=== PATIENT | male | born 1985 | race American Indian/Alaskan Native ===

== ENCOUNTER 2016-11-26 11:42 | Observation (INO) | payer OTHER, SELFPAY ==
[2016-11-26] MEDS ORDERED: Sodium Chloride 0.9% 1,000 ML IV STA (12:12)
--- NOTE | 2016-11-26 12:23 | ED PDOC ---
Arrival/HPI - General Historian: Patient EM Caveat: Acuity of Condition - History of Present Illness Time/Duration: Prior to Arrival Symptom Onset: Sudden Symptom Course: Unchanged Quality: Aching Severity Level: 10 Activities at Onset: Sleeping Context: Home <Harry Denny - Last Filed: 11/26/16 17:10> <HazelKylie - Last Filed: 11/26/16 17:29> - General Chief Complaint: Abdominal Pain Time Seen by Provider: 11/26/16 11:53 - History of Present Illness Narrative History of Present Illness (Text): Patient is a 31 year old male with a past medical history of APKD who presents to the [facility] ED 11/25/16 with complaints of nausea, vomiting, and diarrhea. Patient states he woke up at 7 a.m. with an episode of diarrhea. He said vomiting ensued an hour later and has been throwing up since. Patient states nausea and vomiting is exacerbated when he leans to his left side. Describes vomitus as clear and absent of blood since he has not eaten in a while. Patient states this has occurred a couple of times in the past. He admits to fevers, chills. Denies headache, shortness of breath, chest pain, weakness, dysuria, hematuria. Patient states he is currently taking tylenol 3 for back pain secondary to APKD. Patient was recommended by his PMD to make an appt with nephrology to monitor progression of APKD; patient has not done so as of yet. PMD: Dr. Lezama PMH: APKD FMHx: Mother- Brain aneurysm, Father- Gastroesophageal cancer 11/26/16 12:19 (Harry Denny) Past Medical History - Provider Review Nursing Documentation Reviewed: Yes - Cardiac Hx Hypertension: Yes - Pulmonary Hx Respiratory Disorders: No - Neurological Hx Neurological Disorder: No - HEENT Hx HEENT Disorder: No - Renal Hx Renal Disorder: No - Endocrine/Metabolic Hx Endocrine Disorders: No - Hematological/Oncological Hx Blood Disorders: No - Integumentary Hx Dermatological Disorder: No - Musculoskeletal/Rheumatological Hx Musculoskeletal Disorders: No - Gastrointestinal Hx Gastritis: Yes - Genitourinary/Gynecological Other/Comment: POLYCYSTIC KIDNEY DISEASE - Psychiatric Hx Psychophysiologic Disorder: No Hx Depression: No Hx Substance Use: No - Suicidal Assessment Feels Threatened In Home Enviroment: No <Harry Denny - Last Filed: 11/26/16 17:10> Family/Social History - Physician Review Nursing Documentation Reviewed: Yes Family/Social History: Other Smoking Status: Never Smoked Hx Alcohol Use: No Hx Substance Use: No Hx Substance Use Treatment: No <Harry Denny - Last Filed: 11/26/16 17:10> <Kylie Oliva - Last Filed: 11/26/16 17:29> Narrative Family History (Free Text): non-contributory 11/26/16 12:24 (Harry Denny) Allergies/Home Meds <Harry Denny - Last Filed: 11/26/16 17:10> <Kylie Oliva - Last Filed: 11/26/16 17:29> Allergies/Adverse Reactions: Allergies No Known Allergies Allergy (Verified 11/26/16 12:03) Home Medications: Home Meds Medication Instructions Recorded Confirmed Lisinopril 80 mg PO DAILY 02/05/12 11/26/16 Review of Systems - Physician Review All systems were reviewed & negative as marked: Yes - Review of Systems Systems not reviewed;Unavailable: Acuity of Condition Constitutional: Fevers Eyes: Normal ENT: Normal Respiratory: absent: SOB, Cough, Sputum Cardiovascular: absent: Chest Pain, Palpitations Gastrointestinal: Diarrhea, Nausea, Vomiting Genitourinary Male: absent: Dysuria, Hematuria Skin: absent: Rash, Pruritis Neurological: absent: Headache, Dizziness, Focal Weakness <Harry Denny - Last Filed: 11/26/16 17:10> Physical Exam Vital Signs Reviewed: Yes Temperature: Afebrile Blood Pressure: Normal Pulse: Regular Respiratory Rate: Normal Appearance: Positive for: Uncomfortable Pain Distress: None Mental Status: Positive for: Alert and Oriented X 3 - Systems Exam Head: Present: Atraumatic, Normocephalic Extroacular Muscles: Present: EOMI Mouth: Present: Moist Mucous Membranes Respiratory/Chest: Present: Clear to Auscultation, Good Air Exchange, Respiratory Distress Cardiovascular: Present: Regular Rate and Rhythm, Normal S1, S2 Abdomen: No: Tenderness, Distention, Rebound, Guarding Upper Extremity: Present: Normal Inspection Lower Extremity: Present: Normal Inspection Neurological: Present: CN II-XII Intact Skin: Present: Warm, Normal Color Psychiatric: Present: Alert, Oriented x 3 <Harry Denny - Last Filed: 11/26/16 17:10> Medical Decision Making Re-evaluation Time: 18:15 (Patient states abdominal pain waxes and wanes, gave Reglan 10 mg instead of morphine. Will keep patient overnight for observation.) - Lab Interpretations I have reviewed the lab results: Yes Interpretation: All labs normal - RAD Interpretation Lehr Attendant: Radiologist <Harry Denny - Last Filed: 11/26/16 17:10> <Kylie Oliva - Last Filed: 11/26/16 17:29> ED Course and Treatment: Assessment 31 year old male with complaints of nausea vomiting and diarrhea Plan - CT abdomen/pelvis - Zofran, Pepcid - CBC, CMP - IVF - UA 11/26/16 12:26 11/26/16 12:58 (Harry Denny) 11/26/16 13:04 Jimmy Medina is a 31 year old male who presents to the emergency department with complaints of nausea and vomiting. In agreement with resident note. Patient was seen and evaluated with resident, came up with plan and treatment together. 11/26/16 15:44 Patient has been continuing to vomit despite pepcid, zofran x 2, and IVF - has failed antiemetic - will give additional antiemetic and place on med/surg. 11/26/16 17:[address] Jose David Cruz. (Kylie Oliva) - Lab Interpretations Lab Results: 11/26/16 12:40 11/26/16 12:40 Lab Results 11/26/16 13:38: Alcohol, Quantitative < 10 11/26/16 13:20: Urine Opiates Screen Negative, Urine Methadone Screen Negative, Ur Barbiturates Screen Negative, Ur Phencyclidine Scrn Negative, Ur Amphetamines Screen Negative, U Benzodiazepines Scrn Negative, U Oth Cocaine Metabols Negative, U Cannabinoids Screen Positive H 11/26/16 13:20: Urine Color Yellow, Urine Appearance Clear, Urine pH 6.5, Ur Specific Elizabeth 1.015, Urine Protein 30 H, Urine Glucose (UA) Negative, Urine Ketones 40 H, Urine Blood Moderate H, Urine Nitrate Negative, Urine Bilirubin Negative, Urine Urobilinogen 0.2, Ur Leukocyte Esterase Negative, Urine RBC 5 - 10, Urine WBC 1 - 3, Ur Epithelial Cells 0 - 2, Urine Bacteria Few 11/26/16 12:40: Sodium 144, Potassium 4.1, Chloride 106, Carbon Dioxide 22, Anion Gap 20, BUN 23 H, Creatinine 1.3, Est GFR ( Amer) > 60, Est GFR ( Non-Af Amer) > 60, Random Glucose 146 H, Calcium 10.1, Total Bilirubin 1.6 H, AST 36, ALT 20, Alkaline Phosphatase 84, Total Protein 9.0 H, Albumin 4.8, Globulin 4.2, Albumin/Globulin Ratio 1.1, Amylase 71, Lipase 66 11/26/16 12:40: WBC 9.5, RBC 4.96, Hgb 14.8, Hct 42.6, MCV 85.9, MCH 29.8, MCHC 34.7, RDW 12.4, Plt Count 260, MPV 10.2, Gran % 88.7 H, Lymph % (Auto) 6.0 L, [place] % (Auto) 5.0, Eos % (Auto) 0.1 L, Baso % (Auto) 0.2, Gran # 8.42 H, Lymph # 0.6 L, [place] # 0.5, Eos # 0.0, Baso # 0.02 - RAD Interpretation Radiology Orders: 11/26/16 12:53 ABD & PELVIS W/O PO OR IV CONT [CT] Stat - Medication Orders Current Medication Orders: Sodium Chloride (Sodium Chloride 0.9%) 1,000 mls @ 125 mls/hr IV .Q8H CHANDANA Ondansetron HCl (Zofran Inj) 4 mg IVP Q4H PRN PRN Reason: Nausea/Vomiting Pantoprazole Sodium (Protonix Inj) 40 mg IVP Q12 CHANDANA Discontinued Medications Famotidine (Pepcid) 20 mg IVP STAT STA Stop: 11/26/16 12:13 Last Admin: 11/26/16 12:46 Dose: 20 mg Famotidine (Pepcid) Confirm Administered Dose 20 mg .ROUTE .ST-MED ONE Stop: 11/26/16 12:17 Last Admin: 11/26/16 12:49 Dose: 20 mg Sodium Chloride (Sodium Chloride 0.9%) 1,000 mls @ 999 mls/hr IV .Q1H1M STA Stop: 11/26/16 13:12 Last Admin: 11/26/16 12:46 Dose: 999 mls/hr Sodium Chloride (Sodium Chloride 0.9%) 1,000 mls @ 100 mls/hr IV .Q10H CHANDANA Metoclopramide HCl (Reglan) 10 mg IVP STAT STA Stop: 11/26/16 15:39 Last Admin: 11/26/16 16:16 Dose: 10 mg Ondansetron HCl (Zofran Inj) 4 mg IVP STAT STA Stop: 11/26/16 12:13 Last Admin: 11/26/16 12:46 Dose: 4 mg Ondansetron HCl (Zofran Inj) Confirm Administered Dose 4 mg .ROUTE .STK-MED ONE Stop: 11/26/16 12:17 Last Admin: 11/26/16 16:19 Dose: Ondansetron HCl (Zofran Inj) 4 mg IVP STAT STA Stop: 11/26/16 13:24 Last Admin: 11/26/16 13:30 Dose: 4 mg - PA / LOBSTERMAN / Resident Statement / has reviewed & agrees with the documentation as recorded. / has examined the patient and agrees with the treatment plan. <Kylie Oliva - Last Filed: 11/26/16 17:29> Disposition/Present on Arrival - Present on Arrival Any Indicators Present on Arrival: No History of DVT/PE: No History of Uncontrolled Diabetes: No Urinary Catheter: No History of Decub. Ulcer: No History Surgical Site Infection Following: None - Disposition Have Diagnosis and Disposition been Completed?: Yes Disposition Time: 19:00 <Harry Denny - Last Filed: 11/26/16 17:10> <Kylie Oliva - Last Filed: 11/26/16 17:29> - Disposition Diagnosis: Polycystic kidney disease, Abdominal pain Disposition: HOSPITALIZED Patient Problems: Current Active Problems Problem Status Onset Abdominal pain Acute Polycystic kidney disease Acute Condition: GUARDED
[2016-11-26 13:28] LABS: BASO # 0.02 K/mm3 (0.0-2.0); BASO % 0.2 % (0.0-3.0); EOS % 0.1 % (1.5-5.0); GRAN # 8.42 (1.4-6.5); GRAN % 88.7 % (50.0-68.0); HEMATOCRIT 42.6 % (42.0-52.0); LYMPH # 0.6 (1.2-3.4); MEAN CELL VOLUME 85.9 fl (80.0-105.0); MEAN CORPUSCULAR HEMOGLOBIN 29.8 pg (25.0-35.0); MEAN CORPUSCULAR HGB CONC 34.7 g/dl (31.0-37.0); MEAN PLATELET VOLUME 10.2 fl (7.0-11.0); MONO # 0.5 (0.1-0.6); RED CELL DISTRIBUTION WIDTH 12.4 % (11.5-14.5); WHITE BLOOD COUNT 9.5 10^3/ul (4.5-11.0)
[2016-11-26 13:34] LABS: ALB/GLOB RATIO 1.1 (1.1-1.8); ALKALINE PHOSPHATASE 84 U/L (38-126); ALT/SGPT 20 U/L (7-56); AMYLASE 71 U/L (35-125); AST/SGOT 36 U/L (17-59); BILIRUBIN,TOTAL 1.6 mg/dL (0.2-1.3); BLOOD UREA NITROGEN 23 mg/dL (7-21); CALCIUM 10.1 mg/dL (8.4-10.5); CARBON DIOXIDE 22 mmol/L (21-33); CHLORIDE 106 mmol/L (98-107); GFR AFRICAN-AMERICAN > 60; GLUCOSE,RANDOM 146 mg/dL (70-110); LIPASE 66 U/L (23-300); POTASSIUM 4.1 mmol/L (3.6-5.0); SODIUM 144 mmol/L (132-148)
[2016-11-26 13:53] LABS: PH,URINE 6.5 (4.7-8.0); URINE BILIRUBIN NEGATIVE (NEGATIVE); URINE BLOOD MODERATE (NEGATIVE); URINE GLUCOSE (UA) NEGATIVE (NEGATIVE); URINE KETONE 40 mg/dL (NEGATIVE); URINE LEUKOCYTE ESTERASE NEGATIVE Leu/uL (NEGATIVE); URINE PROTEIN 30 mg/dL (<30 mg/dL); URINE UROBILINOGEN 0.2 E.U./dL (<1 E.U./dL)
[2016-11-26 13:59] LABS: URINE APPEARANCE CLEAR (CLEAR); URINE COLOR YELLOW (YELLOW)
[2016-11-26 14:03] LABS: URINE BACTERIA FEW (NEG); URINE EPITHELIAL CELLS 0 - 2 /hpf (0-5)
--- NOTE | 2016-11-26 15:04 | CT ---
PROCEDURE: CT abdomen and pelvis 11/26/2016 HISTORY: Diffuse abdominal pain COMPARISON: No prior TECHNIQUE: Contiguous axial images of the abdomen and pelvis. Oral contrast was administered. No IV contrast given. Coronal and Sagittal reformats generated. Radiation dose: Total exam DLP = 448.19 mGy-cm. This CT exam was performed using one or more of the following dose reduction techniques: Automated exposure control, adjustment of the mA and/or kV according to patient size, and/or use of iterative reconstruction technique. FINDINGS: LOWER THORAX: Lung bases are clear without infiltrate effusion or basilar pneumothorax. Tiny hiatal hernia. Heart size is borderline/mildly enlarged. No significant pericardial effusion. LIVER: Multiple varying sized rounded low-attenuation foci scattered throughout the entire liver most likely representing hepatic cysts. The largest of these lesions located in the anterior aspect of the left lobe measuring approximately 2.7 x 1.8 cm. GALLBLADDER AND BILE DUCTS: The gallbladder is physiologically distended. No evidence of intraluminal gallbladder calculi. PANCREAS: The pancreas appears grossly unremarkable without mass collection or calcification. SPLEEN: Spleen appears unremarkable as well without mass collection or calcification. ADRENALS: The the adrenal glands are not well delineated on due to the numerous bilateral renal cysts however no definitive adrenal mass seen within limitation of this exam. . KIDNEYS AND URETERS: Multiple bilateral renal cysts with some of the markedly enlarged kidneys consistent with polycystic kidney disease. Note that there are scattered areas of a hyperdense foci scattered throughout the kidneys that could represent focal areas of renal parenchyma however hemorrhagic cystic changes not excluded. There also a few scattered bilateral calculi as well. BLADDER: The urinary bladder appears incompletely distended which may account for slight thick-walled appearance. Muscular hypertrophy may contribute. No evidence of intraluminal urinary bladder calculi. REPRODUCTIVE: Prostate gland contains a few scattered calcifications though otherwise appears unremarkable. Seminal vesicles appear normal. APPENDIX: What could represent a partially debris filled appendix seen on axial image number [id number]. No evidence to suggest acute appendicitis BOWEL: Evaluation the bowel is limited due to the lack of oral contrast material. Stomach appears under distended which presumably accounts for slight thick-walled appearance. There is compression of the mesentery and multiple loops of small bowel due to enlarged cystic kidneys. There is also compression of portions of the large bowel as well. Elliptical shaped fluid collection within the pelvis between the bladder and rectum and seminal vesicles probably represent fluid within a loop of small bowel a discrete fluid collection have however cannot be completely excluded. Abscess would be unlikely as per clinical history. PERITONEUM: Unremarkable. No fluid collection. No definitive free intraperitoneal air LYMPH NODES: Unremarkable. No enlarged lymph nodes. VASCULATURE: Unremarkable. No aortic aneurysm. BONES: Mild multilevel degenerative spondylosis of the lower thoracic and lumbar Osseous structures appear intact. OTHER FINDINGS: None. IMPRESSION: Findings consistent with polycystic kidney disease as described above. There are also scattered areas of increased attenuation throughout the cysts that could represent residual foci of renal parenchyma however some hemorrhagic degradation not excluded. There also appear to be a few scattered calcifications. . Multiple hepatic cysts. There is a elliptical shaped fluid collection within pelvis anterior to the rectum and dorsal to the bladder that probably represents a loop of fluid-filled small bowel. Clinic correlation recommended. Abscess collection would be on likely in the absence of pertinent clinical history. These findings discussed with Dr. Oliva at approximately 2:55 p.m. with written down and read back verification.
[2016-11-26] MEDS ORDERED: Sodium Chloride 0.9% 1,000 ML IV SCH ×2 (17:15→17:17)
--- NOTE | 2016-11-26 17:24 | CP.PCM.HP ---
<DERICK LEBLANC - Last Filed: 11/26/16 18:25> History of Present Illness - History of Present Illness History of Present Illness: Mr. Medina is a 31 yo AAM with a past medical history of APKD, HTN and regular marijuana use who presents to the [facility] ED 11/26/16 with complaints of nausea, vomiting, and diarrhea that started this morning when he woke up. Pt states that he has had 6 episodes of nonbloody watery diarrhea and vomiting around the same time. Pt denies having eaten anything differently last night and states that he usually smokes 1gm of marijuana every night along with a geeta bar, and states that last night was no different. denies any association w/ marijuana use (if it makes things better or worse). states that he was in another hospital in [place] for similar complaints last , and that he has had a few similar episodes before but was never admitted to a hospital; pt cannot quantify how many times or how often these events have happened. has never had prior EGD. states he's been taking lisinopril 80daily for 4 years for htn and sees Dr. Lezama, last time being 3-4mos ago. pt's main complaint is nausea. He admits to fevers, chills. Denies headache, abd pain, shortness of breath, chest pain, weakness, dysuria, hematuria. 10-point ROS was reviewed and otherwise unremarkable. PMD: Dr. Lezama PMH: APKD, HTN, marijuana use PSH: none Meds: lisiniopril 80mg daily Allergies: NKDA SHx: lives w/ roommate (no symptoms), denies tobacco and ETOH; daily marijuana user, denies other substances FMHx: Mother- of cerebral aneurysm at age 25y (pt was 5yo), Father- Gastroesophageal cancer Present on Admission - Present on Admission Any Indicators Present on Admission: No History of DVT/PE: No History of Uncontrolled Diabetes: No Review of Systems - Review of Systems All systems: reviewed and no additional remarkable complaints except (as per HPI ) Past Patient History - Past Social History Smoking Status: Never Smoked Alcohol: None Drugs: Cannabis Home Situation {Lives}: Friends - CARDIAC Hx Cardiac Disorders: Yes Hx Hypertension: Yes - PULMONARY Hx Respiratory Disorders: No - NEUROLOGICAL Hx Neurological Disorder: No - HEENT Hx HEENT Problems: No - RENAL Hx Chronic Kidney Disease: Yes Other/Comment: adult polycystic kidney disease - ENDOCRINE/METABOLIC Hx Endocrine Disorders: No - HEMATOLOGICAL/ONCOLOGICAL Hx Blood Disorders: No - INTEGUMENTARY Hx Dermatological Problems: No - MUSCULOSKELETAL/RHEUMATOLOGICAL Hx Musculoskeletal Disorders: No - GASTROINTESTINAL Hx Gastrointestinal Disorders: Yes Hx Gastritis: Yes - GENITOURINARY/GYNECOLOGICAL Hx Genitourinary Disorders: Yes Other/Comment: POLYCYSTIC KIDNEY DISEASE - PSYCHIATRIC Hx Psychophysiologic Disorder: Yes Hx Depression: No Hx Substance Use: Yes (daily marijuana use) - SURGICAL HISTORY Hx Surgeries: No Meds Home Medications: Home Medication List Medication Instructions Recorded Confirmed Type Ondansetron ODT [Zofran ODT] 4 mg PO Q6 PRN #10 odt 11/27/16 Rx Pantoprazole [Protonix] 40 mg PO DAILY #14 ect 11/27/16 Rx amLODIPine [Norvasc] 2.5 mg PO DAILY #14 tab 11/27/16 Rx Allergies/Adverse Reactions: Allergies Allergy/AdvReac Type Severity Reaction Status Date / Time No Known Allergies Allergy Verified 11/26/16 20:21 Physical Exam - Constitutional Appears: Well, No Acute Distress Additional comments: initially writhing in pain, but once interview began, pt settled down and had conversation in NAD and speaking full sentences w/o vomiting or sob; was able to sit up in bed, lay back down and change position a couple of times w/o feeling nauseous or vomiting vomiting in bucket is bile-colored w/ some sputum - Head Exam Head Exam: ATRAUMATIC, NORMAL INSPECTION, NORMOCEPHALIC - Eye Exam Eye Exam: EOMI, Normal appearance, PERRL Pupil Exam: NORMAL ACCOMODATION - ENT Exam ENT Exam: Mucous Membranes Moist, Normal Exam - Neck Exam Neck exam: Positive for: Normal Inspection - Respiratory Exam Respiratory Exam: Clear to Auscultation Bilateral, NORMAL BREATHING PATTERN. absent: Accessory Muscle Use, Rales, Rhonchi, Wheezes, Respiratory Distress - Cardiovascular Exam Cardiovascular Exam: Bradycardia, Irregular Rhythm, +S1, +S2 - GI/Abdominal Exam GI & Abdominal Exam: Hypoactive Bowel Sounds, Soft. absent: Distended, Guarding , Rebound, Tenderness - Extremities Exam Extremities exam: Positive for: normal inspection. Negative for: pedal edema - Back Exam Back exam: NORMAL INSPECTION. absent: CVA tenderness (L), CVA tenderness (R), muscle spasm, paraspinal tenderness - Neurological Exam Neurological exam: Alert, CN II-XII Intact, Oriented x3 - Psychiatric Exam Psychiatric exam: Normal Affect, Normal Mood Additional comments: pt is eccentric - Skin Skin Exam: Normal Color, Warm Results - Vital Signs Recent Vital Signs: Last Vital Signs Temp 98.1 F 11/26/16 16:25 Pulse 88 11/26/16 16:25 Resp 17 11/26/16 16:25 BP 114/60 11/26/16 16:25 Pulse Ox 100 11/26/16 16:25 - Labs Result Diagrams: 11/26/16 12:40 11/26/16 12:40 Assessment & Plan - Assessment and Plan (Free Text) Assessment: 31yo AAM PMH HTN and APKD p/w n/v/d that started this morning, but has hx of multiple similar episodes. Pt is a daily marijuna user. Vomiting likely 2/2 underlying polycystic kidney irritating the GI tract vs cyclic vomiting syndrome 2/2 regular marijuana use. BP is stable, however, on exam pt was igor w/ an irregular HR. Plan: 1. Nausea/Vomiting/Diarrhea - CT abd/pelvis showed multiple b/l renal cysts consistent w/ APKD (hemorrhagic cystic changes not excluded), hepatic cysts (largest 2.7x1.8cm), compression of mesentry and multiple loops of small bowel due to enlarged cystic kidneys, and fluid collection w/ pelvis anterior to rectum but posterior to bladder. - received pepcid, regland and zofran in ED - NPO - advance diet only as tolerated if no longer vomiting - Zofran IV PRN - PTX - D5 1/2NS @125 - thyroid profile, lipid panel ordered - stool c diff and stool culture 2. Irregular HR - EKG - monitor pt's vitals - troponin I ordered 3. Hx HTN - Lisinopril 40mg in ED - Lisinopril 40mg on floors - cont Lisinopril 80mg daily (home dose) 4. Hyperglycemia - A1C ordered, f/u 5. regular marijuana use - encouraged pt to to stop use - monitor for signs of withdrawal and improvement/worsening of symptoms PTX/SCDs NPO D5 1/2NS @125 Patient was seen, evaluated and discussed with attending, Dr. Nancy Leblanc PGY1 - Date & Time Date: 11/26/16 Time: 18:00 <Latisha Cruz - Last Filed: 11/27/16 16:41> Results - Vital Signs Recent Vital Signs: Last Vital Signs Temp 98.6 F 11/27/16 07:30 Pulse 54 L 11/27/16 07:30 Resp 16 11/27/16 07:30 BP 144/97 H 11/27/16 07:30 Pulse Ox 91 L 11/27/16 07:30 - Labs Result Diagrams: 11/27/16 07:30 11/27/16 07:30 Labs: Laboratory Results - last 24 hr 11/27/16 11/27/16 11/27/16 07:30 07:30 07:30 WBC 9.3 RBC 4.71 Hgb 14.1 Hct 40.2 L MCV 85.4 MCH 29.9 MCHC 35.1 RDW 12.5 Plt Count 249 MPV 9.7 Sodium 145 Potassium 3.6 Chloride 108 H Carbon Dioxide 23 Anion Gap 18 BUN 18 Creatinine 1.3 Est GFR ( Amer) > 60 Est GFR (Non-Af Amer) > 60 Random Glucose 127 H Calcium 9.5 Phosphorus 3.3 Magnesium 2.0 Total Bilirubin 1.0 AST 34 ALT 27 Alkaline Phosphatase 63 Troponin I 0.01 Total Protein 8.0 Albumin 4.4 Globulin 3.6 Albumin/Globulin Ratio 1.2 Triglycerides 37 Cholesterol 164 LDL Cholesterol Direct 87 HDL Cholesterol 55 Free T4 0.88 TSH 3rd Generation 0.58 Attending/Attestation - Attestation I have personally seen and examined this patient.: Yes I have fully participated in the care of the patient.: Yes I have reviewed all pertinent clinical information: Yes Notes (Text): I have seen and examined the patient at bedside. Agree with the above note with the following additions/ exceptions: Briefly this is 31 year old male with history of APKD, HTN and marijuana abuse who presented with nausea, vomiting and non bloody diarrhea most likely due to viral gastroenteritis. Will observe patient overnight. Start IV hydration, antiemetics and antihypertensives as he has high BP. Patient usually takes lisinopril at home however could not take that today due to vomiting. Girl friend at the bedside. Patient had 2 similar episodes in the past. Counselling provided regarding marijuana use. Upon discharge patient will follow up with Dr Kaden Stroud. Dr Latisha Cruz
[2016-11-26] MEDS: Dextrose 5%/0.45% NS 1,000 ML IV SCH (18:42)
[2016-11-26] MEDS ORDERED: Pneumococcal 23-Valent Vaccine IM ONE (22:54)
[2016-11-26 22:55] VITALS: BMI 23.7
[2016-11-27] MEDS ORDERED: Morphine 2 mg/ml ISec IVP STA (04:16)
[2016-11-27 08:18] LABS: HEMATOCRIT 40.2 % (42.0-52.0); MEAN CELL VOLUME 85.4 fl (80.0-105.0); MEAN CORPUSCULAR HEMOGLOBIN 29.9 pg (25.0-35.0); MEAN CORPUSCULAR HGB CONC 35.1 g/dl (31.0-37.0); MEAN PLATELET VOLUME 9.7 fl (7.0-11.0); RED CELL DISTRIBUTION WIDTH 12.5 % (11.5-14.5); WHITE BLOOD COUNT 9.3 10^3/ul (4.5-11.0)
[2016-11-27] MEDS: Dextrose 5%/0.45% NS 1,000 ML IV SCH ×2 (08:29→11:32)
[2016-11-27 08:52] LABS: ALB/GLOB RATIO 1.2 (1.1-1.8); ALKALINE PHOSPHATASE 63 U/L (38-126); ALT/SGPT 27 U/L (7-56); AST/SGOT 34 U/L (17-59); BLOOD UREA NITROGEN 18 mg/dL (7-21); CALCIUM 9.5 mg/dL (8.4-10.5); CARBON DIOXIDE 23 mmol/L (21-33); CHLORIDE 108 mmol/L (98-107); CHOLESTEROL 164 mg/dL (130-200); GFR AFRICAN-AMERICAN > 60; GLUCOSE,RANDOM 127 mg/dL (70-110); PHOSPHOROUS 3.3 mg/dL (2.5-4.5); POTASSIUM 3.6 mmol/L (3.6-5.0); SODIUM 145 mmol/L (132-148)
[2016-11-27 09:08] LABS: FREE T4 0.88 ng/dL (0.78-2.19); TROPONIN I 0.01 ng/mL
[2016-11-27 09:22] LABS: THYROID STIMULATING HORMONE 0.58 mIU/mL (0.46-4.68)
--- NOTE | 2016-11-27 13:41 | CARD ---
APPROVED REPORT EKG Measurement Heart [id number] <Conclusion> Marked sinus bradycardia Nonspecific T wave abnormality Abnormal ECG
--- NOTE | 2016-11-27 16:50 | CP.PCM.DIS ---
Provider - Provider Date of Admission: 11/26/16 15:39 Attending physician: Latisha Cruz MD Primary care physician: Maximus Alfonso MD Consults: None Time Spent in preparation of Discharge (in minutes): 35 Hospital Course - Lab Results Lab Results: Most Recent Lab Values WBC 9.3 10^3/ul (4.5-11.0) 11/27/16 07:30 RBC 4.71 10^6/uL (3.5-6.1) 11/27/16 07:30 Hgb 14.1 g/dL (14.0-18.0) 11/27/16 07:30 Hct 40.2 % (42.0-52.0) L 11/27/16 07:30 MCV 85.4 fl (80.0-105.0) 11/27/16 07:30 MCH 29.9 pg (25.0-35.0) 11/27/16 07:30 MCHC 35.1 g/dl (31.0-37.0) 11/27/16 07:30 RDW 12.5 % (11.5-14.5) 11/27/16 07:30 Plt Count 249 10^3/uL (120.0-450.0) 11/27/16 07:30 MPV 9.7 fl (7.0-11.0) 11/27/16 07:30 Gran % 88.7 % (50.0-68.0) H 11/26/16 12:40 Lymph % (Auto) 6.0 % (22.0-35.0) L 11/26/16 12:40 [place] % (Auto) 5.0 % (1.0-6.0) 11/26/16 12:40 Eos % (Auto) 0.1 % (1.5-5.0) L 11/26/16 12:40 Baso % (Auto) 0.2 % (0.0-3.0) 11/26/16 12:40 Gran # 8.42 (1.4-6.5) H 11/26/16 12:40 Lymph # 0.6 (1.2-3.4) L 11/26/16 12:40 [place] # 0.5 (0.1-0.6) 11/26/16 12:40 Eos # 0.0 (0.0-0.7) 11/26/16 12:40 Baso # 0.02 K/mm3 (0.0-2.0) 11/26/16 12:40 Sodium 145 mmol/L (132-148) 11/27/16 07:30 Potassium 3.6 mmol/L (3.6-5.0) 11/27/16 07:30 Chloride 108 mmol/L (98-107) H 11/27/16 07:30 Carbon Dioxide 23 mmol/L (21-33) 11/27/16 07:30 Anion Gap 18 (10-20) 11/27/16 07:30 BUN 18 mg/dL (7-21) 11/27/16 07:30 Creatinine 1.3 mg/dL (0.5-1.4) 11/27/16 07:30 Est GFR ( Amer) > 60 11/27/16 07:30 Est GFR (Non-Af Amer) > 60 11/27/16 07:30 Random Glucose 127 mg/dL (70-110) H 11/27/16 07:30 Calcium 9.5 mg/dL (8.4-10.5) 11/27/16 07:30 Phosphorus 3.3 mg/dL (2.5-4.5) 11/27/16 07:30 Magnesium 2.0 mg/dL (1.7-2.2) 11/27/16 07:30 Total Bilirubin 1.0 mg/dL (0.2-1.3) 11/27/16 07:30 AST 34 U/L (17-59) 11/27/16 07:30 ALT 27 U/L (7-56) 11/27/16 07:30 Alkaline Phosphatase 63 U/L (38-126) 11/27/16 07:30 Troponin I 0.01 ng/mL 11/27/16 07:30 Total Protein 8.0 g/dL (5.8-8.3) 11/27/16 07:30 Albumin 4.4 g/dL (3.0-4.8) 11/27/16 07:30 Globulin 3.6 gm/dL 11/27/16 07:30 Albumin/Globulin Ratio 1.2 (1.1-1.8) 11/27/16 07:30 Triglycerides 37 mg/dL (35-160) 11/27/16 07:30 Cholesterol 164 mg/dL (130-200) 11/27/16 07:30 LDL Cholesterol Direct 87 mg/dL (0-129) 11/27/16 07:30 HDL Cholesterol 55 mg/dL (29-60) 11/27/16 07:30 Amylase 71 U/L (35-125) 11/26/16 12:40 Lipase 66 U/L (23-300) 11/26/16 12:40 Free T4 0.88 ng/dL (0.78-2.19) 11/27/16 07:30 TSH 3rd Generation 0.58 mIU/mL (0.46-4.68) 11/27/16 07:30 Urine Color Yellow (YELLOW) 11/26/16 13:20 Urine Appearance Clear (CLEAR) 11/26/16 13:20 Urine pH 6.5 (4.7-8.0) 11/26/16 13:20 Ur Specific [place] 1.015 (1.005-1.035) 11/26/16 13:20 Urine Protein 30 mg/dL (<30 mg/dL) H 11/26/16 13:20 Urine Glucose (UA) Negative mg/dL (NEGATIVE) 11/26/16 13:20 Urine Ketones 40 mg/dL (NEGATIVE) H 11/26/16 13:20 Urine Blood Moderate (NEGATIVE) H 11/26/16 13:20 Urine Nitrate Negative (NEGATIVE) 11/26/16 13:20 Urine Bilirubin Negative (NEGATIVE) 11/26/16 13:20 Urine Urobilinogen 0.2 E.U./dL (<1 E.U./dL) 11/26/16 13:20 Ur Leukocyte Esterase Negative [place]/uL (NEGATIVE) 11/26/16 13:20 Urine RBC 5 - 10 /hpf (0-2) 11/26/16 13:20 Urine WBC 1 - 3 /hpf (0-6) 11/26/16 13:20 Ur Epithelial Cells 0 - 2 /hpf (0-5) 11/26/16 13:20 Urine Bacteria Few (NEG) 11/26/16 13:20 Urine Opiates Screen Negative (NEGATIVE) 11/26/16 13:20 Urine Methadone Screen Negative (NEGATIVE) 11/26/16 13:20 Ur Barbiturates Screen Negative (NEGATIVE) 11/26/16 13:20 Ur Phencyclidine Scrn Negative (NEGATIVE) 11/26/16 13:20 Ur Amphetamines Screen Negative (NEGATIVE) 11/26/16 13:20 U Benzodiazepines Scrn Negative (NEGATIVE) 11/26/16 13:20 U Oth Cocaine Metabols Negative (NEGATIVE) 11/26/16 13:20 U Cannabinoids Screen Positive (NEGATIVE) H 11/26/16 13:20 Alcohol, Quantitative < 10 mg/dL (0-10) 11/26/16 13:38 - Hospital Course Hospital Course: Briefly this is 31 year old male with history of polycystic kidney disease, HTN and marijuana abuse who presented with nausea, vomiting and non bloody diarrhea most likely due to viral gastroenteritis. He was given IV hydration and antiemetics. Today he looks much improved. Denies any nausea or vomiting since midnight. He was able to tolerate full liquids for lunch and regular tray for dinner. He will be given few pills of zofran in case he develops nausea again. Also his BP was noted to be high. Latest BP is 140 systolic and patient informed me that his usual BP stays around 140's. Will give one dose of norvasc now and will send patient home on norvasc 2.5 daily. I have advised the patient to follow up with snuff grinder and screener. His HR was also noted to be bradycardic. EKG showed HR of 48 with no AV blocks. Patient denies any symptoms of dizziness or syncope. Advised patient to see life skills educator as an outpatient. Counselling provided regarding marijuana use. He reported that he regularly follow up with Dr Alfonso. Dr Latisha Cruz Discharge Exam - Head Exam Head Exam: ATRAUMATIC, NORMAL INSPECTION, NORMOCEPHALIC - Eye Exam Eye Exam: EOMI, Normal appearance Pupil Exam: PERRL - ENT Exam ENT Exam: Mucous Membranes Moist - Neck Exam Neck exam: Full Rom, Normal Inspection - Respiratory Exam Respiratory Exam: Clear to PA & Lateral, NORMAL BREATHING PATTERN. absent: Chest Wall Tenderness, Decreased Breath Sounds - Cardiovascular Exam Cardiovascular Exam: Bradycardia, REGULAR RHYTHM, +S1, +S2 - GI/Abdominal Exam GI & Abdominal Exam: Normal Bowel Sounds, Soft. absent: Distended, Tenderness - Rectal Exam Rectal Exam: Deferred - Extremities Exam Extremities exam: full ROM, normal capillary refill, normal inspection, pedal pulses present - Back Exam Back exam: FULL ROM, NORMAL INSPECTION. absent: CVA tenderness (L), CVA tenderness (R), tenderness, vertebral tenderness - Neurological Exam Neurological exam: Alert, CN II-XII Intact, Normal Gait, Oriented x3 - Skin Skin Exam: Dry, Intact, Normal Color, Warm Discharge Plan - Discharge Medications Prescriptions: amLODIPine [Norvasc] 2.5 mg PO DAILY #14 tab Ondansetron ODT [Zofran ODT] 4 mg PO Q6 PRN #10 odt PRN Reason: Nausea/Vomiting Pantoprazole [Protonix] 40 mg PO DAILY #14 ect - Follow Up Plan Condition: GUARDED Disposition: HOME/ ROUTINE Patient education suggested?: Yes Additional Instructions: Follow up with Dr Alfonso Follow up with Riddler Operator. DISCHARGE DIAGNOSIS: 1-Viral Gastroenteritis 2-Uncontrolled Hypertension 3-Adult polycystic kidney disease 4-Sinus Bradycardia Referrals: Maximus Alfonso MD [Primary Care Provider] -
[2016-11-27 18:14] VITALS: BP 147/108; PULSE 53; RESP 18; TEMP 98.4; O2SAT 98
== END 2016-11-27 18:56 | disposition home or self-care (01) ==
LOC: ED 11:42 → ERH 15:39 → 5RNO 16:44
PROVIDERS: ADMIT Hospitalist; ATTEND Hospitalist
DX: A08.4 Viral intestinal infection, unspecified (principal); I12.9 Hypertensive chronic kidney disease with stage 1 through stage 4 chronic kidney disease, or unspecified chronic kidney disease; N18.9 Chronic kidney disease, unspecified; Q61.2 Polycystic kidney, adult type; R00.1 Bradycardia, unspecified; F12.90 Cannabis use, unspecified, uncomplicated; R73.9 Hyperglycemia, unspecified
CPT/HCPCS: 36415; 74176; 80053; 80061; 80320; 80324; 80345; 80346; 80349; 80353; 80358; 80361; 81001; 82150; 83036; 83690; 83735; 83992; 84100; 84439; 84443; 84484; 85025; 85027; 87045; 87324; 93005; 96374; 96375; 96376; 99285; C9113; G0378; J0360; J2270; J2405; J2765; J7040; J7042

== ENCOUNTER 2017-11-05 08:39 | Emergency (ER) | payer MEDICAID, OTHER ==
[2017-11-05 08:39] VITALS: BMI 23.7
[2017-11-05 08:50] VITALS: RESP 18
[2017-11-05] MEDS ORDERED: Sodium Chloride 0.9% 1,000 ML IV STA (09:04)
--- NOTE | 2017-11-05 09:24 | ED PDOC ---
Arrival/HPI - General Chief Complaint: Abdominal Pain Time Seen by Provider: 11/05/17 08:52 Historian: Patient - History of Present Illness Narrative History of Present Illness (Text): 11/05/17 09:20 32 year old female, whose past medical history includes PKD and hypertension, who presents to the ED complaining of worsening abdominal pain that radiated to the back x couple weeks. Patient notes associated nausea, vomiting, and diarrhea. Patient denies any fever, chills, chest pain, SOB, neck pain, headache , dizziness, or any other complaints. 11/05/17 12:58 Time/Duration: < month Symptom Onset: Gradual Symptom Course: Worsening Activities at Onset: Light Context: Home Past Medical History - Provider Review Nursing Documentation Reviewed: Yes - Cardiac Hx Cardiac Disorders: Yes Hx Hypertension: Yes - Pulmonary Hx Respiratory Disorders: No - Neurological Hx Neurological Disorder: No - HEENT Hx HEENT Disorder: No - Renal Hx Renal Disorder: Yes Other/Comment: adult polycystic kidney disease - Endocrine/Metabolic Hx Endocrine Disorders: No - Hematological/Oncological Hx Blood Disorders: No - Integumentary Hx Dermatological Disorder: No - Musculoskeletal/Rheumatological Hx Musculoskeletal Disorders: No Hx Falls: No - Gastrointestinal Hx Gastrointestinal Disorders: Yes - Genitourinary/Gynecological Hx Genitourinary Disorders: Yes Other/Comment: POLYCYSTIC KIDNEY DISEASE - Psychiatric Hx Psychophysiologic Disorder: Yes Hx Depression: No Hx Substance Use: Yes (1 GM OF MARIJUANA DAILY.SMOKES) - Suicidal Assessment Feels Threatened In Home Enviroment: No Family/Social History - Physician Review Nursing Documentation Reviewed: Yes Family/Social History: Unknown Family HX Smoking Status: Current Some Days Smoker Hx Alcohol Use: No Hx Substance Use: Yes (1 GM OF MARIJUANA DAILY.SMOKES) Hx Substance Use Treatment: No Allergies/Home Meds Allergies/Adverse Reactions: Allergies lisinopril Allergy (Verified 11/05/17 08:48) RASH Review of Systems - Physician Review All systems were reviewed & negative as marked: Yes - Review of Systems Constitutional: Normal Eyes: Normal ENT: Normal Respiratory: Normal. absent: SOB, Cough Cardiovascular: Normal. absent: Chest Pain Gastrointestinal: Abdominal Pain (upper abdominal pain that radiates to he back) Genitourinary Male: Normal. absent: Dysuria, Frequency Musculoskeletal: Back Pain. absent: Neck Pain Skin: Normal. absent: Rash Neurological: Normal. absent: Headache, Dizziness Endocrine: Normal Hemo/Lymphatic: Normal Psychiatric: Normal Physical Exam Vital Signs Reviewed: Yes Vital Signs Temp Pulse Resp BP Pulse Ox 11/05/17 11:31 98 F 59 L 18 181/96 H 99 11/05/17 08:45 99 F 78 18 170/109 H 98 Temperature: Afebrile Blood Pressure: Hypertensive Pulse: Regular Respiratory Rate: Normal Appearance: Positive for: Well-Appearing, Non-Toxic, Comfortable Pain Distress: None Mental Status: Positive for: Alert and Oriented X 3 - Systems Exam Head: Present: Atraumatic, Normocephalic Pupils: Present: PERRL Extroacular Muscles: Present: EOMI Conjunctiva: Present: Normal Mouth: Present: Moist Mucous Membranes Neck: Present: Normal Range of Motion Respiratory/Chest: Present: Clear to Auscultation, Good Air Exchange. No: Respiratory Distress, Accessory Muscle Use Cardiovascular: Present: Regular Rate and Rhythm, Normal S1, S2. No: Murmurs Abdomen: Present: Tenderness (upper abdominal tenderness). No: Distention, Peritoneal Signs Back: Present: Normal Inspection Upper Extremity: Present: Normal Inspection. No: Cyanosis, Edema Lower Extremity: Present: Normal Inspection. No: Edema Neurological: Present: GCS=15, CN II-XII Intact, Speech Normal Skin: Present: Warm, Dry, Normal Color. No: Rashes Psychiatric: Present: Alert, Oriented x 3, Normal Insight, Normal Concentration Medical Decision Making ED Course and Treatment: 11/05/17 09:26 Impression: 32 year old male presents to the ED c/o abdominal pain that radiated to the back x couple weeks. suspec t pkd, wo colitis gastritis pnacreatitis. Plan: -- Labs -- CXR -- Zofran -- Protonix -- Sodium Chloride -- UA -- Bilirubin -- Reassess and dispostion Procedure Note: 11/05/17 10:42 CXR reviewed, shows: IMPRESSION: No acute findings. 11/05/17 11:18 CT Abdomen/Pelvis reviewed, shows: IMPRESSION: No acute abdominal or pelvic abnormality. Polycystic diseases of the kidney and liver. Few hemorrhagic cysts identified in both kidneys. 11/05/17 12:59 labs neg, minimal eleavted cr. h/o of pkd. K wnl. pain improved. pt observed in nad. advise outpt fu. - Lab Interpretations Lab Results: 11/05/17 08:15 11/05/17 08:15 Lab Results 11/05/17 10:00: Urine Color Yellow, Urine Appearance Clear, Urine pH 6.0, Ur Specific [place] 1.020, Urine Protein 30 H, Urine Glucose (UA) Negative, Urine Ketones Trace H, Urine Blood Small H, Urine Nitrate Negative, Urine Bilirubin Negative, Urine Urobilinogen 0.2, Ur Leukocyte Esterase Small H, Urine RBC 0 - 2 , Urine WBC 1 - 3, Ur Epithelial Cells 0 - 2, Urine Bacteria Small 11/05/17 08:15: Sodium 143, Potassium 4.3, Chloride 107, Carbon Dioxide 22, Anion Gap 19, BUN 21, Creatinine 1.7 H, Est GFR ( Amer) 56, Est GFR (Non- Af Amer) 46, Random Glucose 110, Calcium 10.3, Magnesium 2.0, Total Bilirubin 0.8, Direct Bilirubin 0.3, AST 60 H D, ALT 35, Alkaline Phosphatase 86, Total Protein 8.9 H, Albumin 4.8, Globulin 4.1, Albumin/Globulin Ratio 1.2, Lipase 46 11/05/17 08:15: PT 13.7 H, INR 1.19, APTT 25.6 11/05/17 08:15: WBC 5.1 D, RBC 5.06, Hgb 15.1, Hct 43.2, MCV 85.4, MCH 29.8, MCHC 35.0, RDW 12.9, Plt Count 262, MPV 10.8, Gran % 72.1 H, Lymph % (Auto) 18.3 L, [place] % (Auto) 9.2 H, Eos % (Auto) 0.2 L, Baso % (Auto) 0.2, Gran # 3.70 , Lymph # (Auto) 0.9 L, [place] # (Auto) 0.5, Eos # (Auto) 0.0, Baso # (Auto) 0.01 - RAD Interpretation Radiology Orders: 11/05/17 09:04 CHEST PORTABLE [RAD] Stat 11/05/17 10:00 ABD & PELVIS W/O PO OR IV CONT [CT] Stat - Medication Orders Current Medication Orders: Discontinued Medications Sodium Chloride (Sodium Chloride 0.9%) 1,000 mls @ 1,000 mls/hr IV .Q1H STA Stop: 11/05/17 10:03 Last Admin: 11/05/17 09:15 Dose: 1,000 mls/hr eMAR Start Stop Document 11/05/17 09:15 EWO (Rec: 11/05/17 09:15 [id number]) Intravenous Solution Start Date 11/05/17 Start Time 09:15 End Date 11/05/17 End time 10:15 Total Infusion Time 60 Ondansetron HCl (Zofran Inj) 4 mg IVP STAT STA Stop: 11/05/17 09:05 Last Admin: 11/05/17 09:15 Dose: 4 mg IVP Administration Document 11/05/17 09:15 EWO (Rec: 11/05/17 09:15 [email or web address] [id number]) Charges for Administration # of IVP Administrations 1 Pantoprazole Sodium (Protonix Inj) 40 mg IVP STAT STA Stop: 11/05/17 09:05 Last Admin: 11/05/17 09:15 Dose: 40 mg IVP Administration Document 11/05/17 09:15 EWO (Rec: 11/05/17 09:15 EWO [id number]) Charges for Administration # of IVP Administrations 1 - Scribe Statement The provider has reviewed the documentation as recorded by the Scribe Aura Villegas All medical record entries made by the Kaceyibfilomena were at my direction and personally dictated by me. I have reviewed the chart and agree that the record accurately reflects my personal performance of the history, physical exam, medical decision making, and the department course for this patient. I have also personally directed, reviewed, and agree with the discharge instructions and disposition. Disposition/Present on Arrival - Present on Arrival Any Indicators Present on Arrival: No History of DVT/PE: No History of Uncontrolled Diabetes: No Urinary Catheter: No History of Decub. Ulcer: No History Surgical Site Infection Following: None - Disposition Have Diagnosis and Disposition been Completed?: Yes Diagnosis: Abdominal pain Disposition: HOME/ ROUTINE Disposition Time: 11:30 Condition: STABLE Discharge Instructions (ExitCare): Polycystic Kidney Disease, Acute Abdomen ( Belly Pain), Adult (DC) Additional Instructions: please follow up with specialists. you creatinine (kidney function) was mildly elevated to 1.7. you should discuss your results with your doctor/clinic and specialists. return to er with worsening symptoms or concerns. Prescriptions: Pantoprazole Sodium [Protonix] 40 mg PO DAILY #20 ect Referrals: Outbound Sales Consultant [facility] [Outside] - Follow up with primary [employer] [place] [Outside] - Follow up with primary [facility] [place] - Follow up with primary Sekou Lin MD [Primary Care Provider] - Follow up with primary Darrian Ramon MD [Staff Provider] - Follow up with primary Dagoberto Crockett MD [Staff Provider] - Follow up with primary Forms: [employer] ([place]ian), WORK NOTE
[2017-11-05 09:47] LABS: BASO # 0.01 K/mm3 (0.0-2.0); BASO % 0.2 % (0.0-3.0); EOS % 0.2 % (1.5-5.0); GRAN # 3.7 (1.4-6.5); GRAN % 72.1 % (50.0-68.0); HEMOGLOBIN 15.1 g/dL (14.0-18.0); LYMPH # 0.9 (1.2-3.4); LYMPH % 18.3 % (22.0-35.0); MEAN CELL VOLUME 85.4 fl (80.0-105.0); MEAN CORPUSCULAR HEMOGLOBIN 29.8 pg (25.0-35.0); MEAN PLATELET VOLUME 10.8 fl (7.0-11.0); MONO # 0.5 (0.1-0.6); MONO % 9.2 % (1.0-6.0); RBC 5.06 10^6/uL (3.5-6.1); RED CELL DISTRIBUTION WIDTH 12.9 % (11.5-14.5); WHITE BLOOD COUNT 5.1 10^3/ul (4.5-11.0)
[2017-11-05 09:54] LABS: INR 1.19; PARTIAL THROMBOPLASTIN TIME 25.6 Seconds (25.1-36.5); PROTHROMBIN TIME 13.7 SECONDS (9.4-12.5)
[2017-11-05 09:59] LABS: ALB/GLOB RATIO 1.2 (1.1-1.8); ALBUMIN 4.8 g/dL (3.0-4.8); BILIRUBIN,DIRECT 0.3 mg/dL (0.0-0.4); CALCIUM 10.3 mg/dL (8.4-10.5)
[2017-11-05 10:34] LABS: URINE APPEARANCE CLEAR (CLEAR); URINE BILIRUBIN NEGATIVE (NEGATIVE); URINE BLOOD SMALL (NEGATIVE); URINE COLOR YELLOW (YELLOW); URINE GLUCOSE (UA) NEGATIVE (NEGATIVE); URINE LEUKOCYTE ESTERASE SMALL Leu/uL (NEGATIVE); URINE PROTEIN 30 mg/dL (<30 mg/dL); URINE UROBILINOGEN 0.2 E.U./dL (<1 E.U./dL)
--- NOTE | 2017-11-05 10:35 | RAD ---
Date of service: 11/05/2017 HISTORY: abd pain COMPARISON: No prior. FINDINGS: LUNGS: The lungs are well inflated and clear. PLEURA: No significant pleural effusion identified, no pneumothorax apparent. CARDIOVASCULAR: Normal. OSSEOUS STRUCTURES: No significant abnormalities. VISUALIZED UPPER ABDOMEN: Normal. OTHER FINDINGS: None. IMPRESSION: No acute findings.
[2017-11-05 10:46] LABS: URINE EPITHELIAL CELLS 0 - 2 /hpf (0-5); URINE RBC 0 - 2 /hpf (0-2)
[2017-11-05 10:47] LABS: URINE BACTERIA SMALL (NEG)
--- NOTE | 2017-11-05 11:16 | CT ---
Date of service: 11/05/2017 PROCEDURE: CT Abdomen and Pelvis without intravenous contrast HISTORY: Upper abdominal and bilateral flank pain COMPARISON: 11/26/2016 TECHNIQUE: CT scan of the abdomen and pelvis was performed without administration of intravenous contrast. Oral contrast was not administered. Coronal and sagittal reformatted images were obtained. . Radiation dose: Total exam DLP = 343.22 mGy-cm. This CT exam was performed using one or more of the following dose reduction techniques: Automated exposure control, adjustment of the mA and/or kV according to patient size, and/or use of iterative reconstruction technique. FINDINGS: LOWER THORAX: The visualized lungs are clear. LIVER: Dome hepatomegaly and innumerable simple cysts in the level. No intrahepatic ductal dilatation. GALLBLADDER AND BILE DUCTS: Not visualized. PANCREAS: Normal in size. No ductal dilatation. SPLEEN: Normal in size. ADRENALS: Normal in size. No discrete nodule. KIDNEYS AND URETERS: Both kidneys are essentially replaced by innumerable variable-sized simple cyst. Also demonstrated are few hemorrhagic cysts. There are small coarse calcifications in the lower pole of both kidneys with VASCULATURE: No aortic aneurysm. BOWEL: The small bowel loops are normal in caliber. The colon is normal in size. No bowel dilatation or wall thickening. No bowel obstruction. APPENDIX: Normal appendix. PERITONEUM: No free fluid. No free air. LYMPH NODES: No enlarged lymph nodes. BLADDER: Well distended and grossly normal in appearance. REPRODUCTIVE: The uterus is normal in size BONES: No acute fracture. OTHER FINDINGS: None. IMPRESSION: No acute abdominal or pelvic abnormality. Polycystic diseases of the kidney and liver. Few hemorrhagic cysts identified in both kidneys.
[2017-11-05 11:33] VITALS: BP 181/96; PULSE 59; TEMP 98; O2SAT 99
== END 2017-11-05 11:31 | disposition home or self-care (01) ==
LOC: ED 08:39
DX: R10.9 Unspecified abdominal pain (principal); I10 Essential (primary) hypertension
CPT/HCPCS: 71045; 74176; 80053; 81001; 82248; 83690; 83735; 85025; 85610; 85730; 87086; 96361; 96374; 96375; 99283; C9113; J2405; J7030